=== PATIENT | male | born 1940 | race Caucasian/White ===

== ENCOUNTER 2016-07-14 21:08 | Inpatient (IN) | payer MEDICARE, BC ==
--- NOTE | 2016-07-14 21:14 | ER Document Report ---
ED Medical Screen (RME) - General Stated Complaint: FEVER Time seen by provider: 21:11 Mode of Arrival: Ambulatory Information source: Patient Notes: 76-year-old male presents to ED for cough and cold symptoms for the last week. States fever just before coming to the ER as 102. Temperature in RME is a 98.7. Patient has a history of elevated blood pressure and cholesterol. He states he has been taken cold medicine I have greeted and performed a rapid initial assessment of this patient. A comprehensive ED assessment and evaluation of the patient, analysis of test results and completion of medical decision making process will be conducted by an additional ED providers. TRAVEL OUTSIDE OF THE [place] 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 , Hx Hypercholesterolemia, Hx Hypertension - medicated CONTROLLED Denies: Hx Heart Attack Pulmonary Medical History: Denies: Hx Asthma, Hx Bronchitis, Hx COPD, Hx Pneumonia Neurological Medical History: Denies: Hx Cerebrovascular Accident, Hx Seizures Endocrine Medical History: Reports: Hx Diabetes Mellitus Type 2 GI Medical History: Denies: Hx Hepatitis, Hx Hiatal Hernia, Hx Ulcer Musculoskeltal Medical History: Reports Hx Arthritis - mainly shoulders Psychiatric Medical History: Reports: Hx Depression Infectious Medical History: Denies: Hx Hepatitis Past Surgical History: Reports: Hx Cholecystectomy. Denies: Hx Open Heart Surgery, Hx Pacemaker - Immunizations Hx Diphtheria, Pertussis, Tetanus Vaccination: No
[2016-07-14 21:48] LABS: HEMATOCRIT 38.1 % (37.9-51.0); HEMOGLOBIN 12.8 g/dL (13.5-17.0); HGB HCT DIFFERENCE 0.3; MEAN CORPUSCULAR HEMOGLOBIN 27.5 pg (27.0-33.4); MEAN CORPUSCULAR HGB CONC 33.5 g/dL (32.0-36.0); MEAN CORPUSCULAR VOLUME 82 fl (80-97); RED BLOOD COUNT 4.65 10^6/uL (4.35-5.55); RED CELL DISTRIBUTION WIDTH 15.3 % (11.5-14.0); WHITE BLOOD COUNT 13.2 10^3/uL (4.0-10.5)
[2016-07-14 21:53] LABS: ALANINE AMINOTRANSFERASE 32 U/L (21-72); ALBUMIN 3.8 g/dL (3.5-5.0); ALKALINE PHOSPHATASE 105 U/L (38-126); ANION GAP 14 (5-19); ASPARTATE AMINO TRANSFERASE 22 U/L (17-59); BILIRUBIN,TOTAL 1.7 mg/dL (0.2-1.3); BLOOD UREA NITROGEN 11 mg/dL (7-20); CARBON DIOXIDE 24 mmol/L (22-30); CHLORIDE 96 mmol/L (98-107); CREATININE RESULT 0.95 mg/dL (0.52-1.25); GLUCOSE 183 mg/dL (75-110); POTASSIUM 4.2 mmol/L (3.6-5.0); TOTAL PROTEIN 7.6 g/dL (6.3-8.2)
[2016-07-14 22:32] LABS: BAND NEUTROPHILS % (MANUAL) 3 % (3-5); BASOPHILS % (MANUAL) 0 % (0-2); EOSINOPHILS % (MANUAL) 1 % (0-6); LYMPHOCYTES % (MANUAL) 24 % (13-45); TOTAL CELLS COUNTED 100
[2016-07-14 22:38] LABS: ANISOCYTOSIS SLIGHT; PLATELET CLUMPS PRESENT; POLYCHROMASIA SLIGHT; TOXIC VACUOLATION PRESENT
[2016-07-15] MEDS ORDERED: CEFTRIAXONE 1 GM/D5W RTU 50 ML IV ONE (00:29)
[2016-07-15] MEDS ORDERED: LEVOFLOXACIN 750 MG/D5W RTU 150 ML IV ONE (00:30)
[2016-07-15] MEDS ORDERED: NORMAL SALINE 1000 ML 1,000 ML IV ONE (01:25)
--- NOTE | 2016-07-15 01:41 | ER Document Report ---
ED General - General Chief Complaint: Cold Symptoms Stated Complaint: FEVER Mode of Arrival: Ambulatory Notes: Patient is a 76-year-old male with past medical history of diabetes, hypertension, hyperlipidemia who presents with 1 week of progressively worsening cough and shortness of breath. States nothing improves or worsens the symptoms. He has not seen his primary care physician regarding today's concerns. States he's had similar symptoms in the past with upper respiratory infections as well as pneumonia. He has had a fever at home up to 102.5F. Denies any associated vomiting or diarrhea. No headache or ams. TRAVEL OUTSIDE OF THE [place] 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 , Hx Hypercholesterolemia, Hx Hypertension - medicated CONTROLLED Denies: Hx Heart Attack Pulmonary Medical History: Denies: Hx Asthma, Hx Bronchitis, Hx COPD, Hx Pneumonia Neurological Medical History: Denies: Hx Cerebrovascular Accident, Hx Seizures Endocrine Medical History: Reports: Hx Diabetes Mellitus Type 2 Renal/ Medical History: Denies: Hx Peritoneal Dialysis GI Medical History: Denies: Hx Hepatitis, Hx Hiatal Hernia, Hx Ulcer Musculoskeltal Medical History: Reports Hx Arthritis - mainly shoulders Psychiatric Medical History: Reports: Hx Depression Infectious Medical History: Denies: Hx Hepatitis Past Surgical History: Reports: Hx Cholecystectomy. Denies: Hx Open Heart Surgery, Hx Pacemaker - Immunizations Hx Diphtheria, Pertussis, Tetanus Vaccination: No Review of Systems - Review of Systems Notes: Constitutional: Positive for fever. HENT: Negative for sore throat. Eyes: Negative for visual changes. Cardiovascular: Negative for chest pain. Respiratory: Positive for cough Gastrointestinal: Negative for abdominal pain, vomiting or diarrhea. Genitourinary: Negative for dysuria. Musculoskeletal: Negative for back pain. Skin: Negative for rash. Neurological: Negative for headaches, weakness or numbness. 10 point ROS negative except as marked above and in HPI. Physical Exam - Vital signs Vitals: Temp Pulse Resp BP Pulse Ox 97.9 F 95 20 141/79 H 100 07/14/16 21:11 07/14/16 21:11 07/14/16 21:11 07/14/16 21:11 07/14/16 21:11 Interpretation: Hypertensive Notes: PHYSICAL EXAMINATION: GENERAL: Well-appearing, well-nourished and in no acute distress. HEAD: Atraumatic, normocephalic. EYES: Pupils equal round and reactive to light, extraocular movements intact, sclera anicteric, conjunctiva are normal. ENT: nares patent, oropharynx clear without exudates. Moist mucous membranes. NECK: Normal range of motion, supple without lymphadenopathy LUNGS: Breath sounds clear to auscultation except diminished at the left base. No wheezes rales or rhonchi. HEART: Regular rate and rhythm without murmurs ABDOMEN: Soft, nontender, normoactive bowel sounds. No guarding, no rebound. No masses appreciated. EXTREMITIES: Normal range of motion, no pitting or edema. No cyanosis. NEUROLOGICAL: No focal neurological deficits. Moves all extremities spontaneously and on command. PSYCH: Normal mood, normal affect. SKIN: Warm, Dry, normal turgor, no rashes or lesions noted. Course - Re-evaluation Re-evalutation: 07/15/16 01:39 Presentation of an overall well-appearing 76-year-old gentleman in no acute distress. Laboratory to show mild leukocytosis. He is in no significant respiratory distress. No tachypnea or hypoxemia. Chest x-ray does demonstrate a left lower lobe pneumonia. I started patient on IV antibiotics. He will has been admitted to the hospitalist service given his age, history of diabetes, and his current independent residence where he does live alone without any assistance. - Vital Signs Vital signs: Temp Pulse Resp BP Pulse Ox 98.8 F 95 18 141/79 H 95 07/15/16 02:34 07/15/16 01:05 07/15/16 02:34 07/14/16 21:11 07/15/16 02:34 - Laboratory Result Diagrams: 07/14/16 21:31 07/14/16 21:31 Laboratory results interpreted by me: 07/14/16 07/14/16 21:31 21:31 WBC 13.2 H Hgb 12.8 L RDW 15.3 H Metamyelocytes % 1 H Sodium 134.0 L Chloride 96 L Glucose 183 H Total Bilirubin 1.7 H - Diagnostic Test Radiology reviewed: Image reviewed, Reports reviewed Radiology results interpreted by me: 07/15/16 03:25 CXR: Left lower lobe pneumonia Discharge - Discharge Clinical Impression: Left lower lobe pneumonia Qualifiers: Pneumonia type: due to unspecified organism Qualified Code(s): J18.1 - Lobar pneumonia, unspecified organism Condition: Fair Disposition: ADMITTED INPATIENT Admitting Provider: [facility] Admitted: Telemetry
[2016-07-15] MEDS ORDERED: IPRATROPIUM/ALBUTEROL 0.5-2.5 MG/3 ML AMPUL NEB PRN (02:46)
[2016-07-15] MEDS ORDERED: GUAIFENESIN SYRP 200 MG/10 ML UDC PO PRN (02:46)
[2016-07-15] MEDS ORDERED: ACETAMINOPHEN 325 MG TABLET PO PRN (02:46)
[2016-07-15] MEDS ORDERED: DEXTROSE 50%-WATER 25 GM/50 ML DISP.SYRIN IV PRN ×2 (02:48)
[2016-07-15] MEDS ORDERED: DEXTROSE 40% GEL 15 GM TUBE PO PRN ×2 (02:48)
[2016-07-15] MEDS ORDERED: GLUCAGON,HUMAN RECOMB 1 MG INJ IM PRN (02:48)
--- NOTE | 2016-07-15 03:19 | PDOC H&P ---
History of Present Illness Admission Date/PCP: 07/15/16 02:35 LUIZA PAULA, Patient complains of: Fever and cough History of Present Illness: MARIELLA PARNELL is a 76 year old male, without known underlying chronic lung pathology, who presents to the emergency room for evaluation of above complaints. Patient has been discussed with emergency room physician who evaluated the patient. Describes a 2 day history of fever to 102 with shaking chills and productive cough. No diarrhea or dysuria, nausea vomiting. Positive sick contacts in the person of his girlfriend. Has not been on antibiotics. Has had flu vaccination but not pneumonia vaccination. Laboratory results are listed in [facility] and are reviewed. X-ray summary results are listed below, with full report(s) reviewed. . Social history/personal habits: . 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 One son. Lives alone. Has girlfriend. No use of alcohol tobacco or illicit drugs. Allergies/adverse reactions NKDA. Home medications are reviewed by discussion with patient and are to be reconciled by nursing staff in [facility]. Home medications initially autopopulated into [employer] (formerly [employer]) may not accurately reflect patient's true medications, dosages, and/or frequencies. Unfortunately, patient recently started a second medication for his prostatic hypertrophy and is uncertain of specific medication. Order has been entered for staff to contact family, outpatient physician, and/or pharmacy to more accurately determine the specific medication. REVIEW OF SYSTEMS: Constitutional: See history and present illness. Eyes: Wears glasses. ENT: No swallowing problems or complaints. Partial hearing loss. Pulmonary: See history and present illness. Cardiovascular: No current complaints, including chest pain. Gastrointestinal: No current complaints, including nausea or vomiting. Skin: No current complaints, including rashes. Hematologic: Easy bruising. Neurologic: No current complaints, including numbness or tingling. Musculoskeletal: Joint pain from arthritis. Psychiatric: depression; denies suicidal or homicidal ideation. Endocrine: No current complaints, including polyuria. Genitourinary: No current complaints, including dysuria. PHYSICAL EXAMINATION: 74.9 kg. Height is not recorded on the chart. Temperature 98.8. Blood pressure 146/72. Respirations are 15 and unlabored. Pulse 78 and regular. 95 % saturation on room air. Well-nourished well-developed male appearing in number of years younger than his stated age. Awake alert pleasant and cooperative. No obvious distress other than perhaps mildly anxious. Skin is warm and dry. No grossly obvious evidence of rash in areas of skin examined. No subcutaneous nodules palpated. ENT: Hearing grossly normal to normal conversation. Tongue midline on protrusion pink and slightly tacky. Eyes: No scleral icterus. Pupils equal and reactive to light at 4 mm. [place] conjunctivae. Neck is supple and nontender to gentle active range of motion and palpation. Midline trachea. No palpable thyroid nodule mass enlargement or tenderness. Lymphatic: No palpable cervical or clavicular nodes. Neck and lymphatic exams limited by patient body habitus. Psychiatric: Reasonable insight into acute and chronic medical issues. Oriented to time location and why here. Lungs: Auscultation reveals equal breath sounds bilaterally. No use of accessory respiratory muscles. Mildly coarse breath sounds in left base. Cardiovascular: Heart regular rate and rhythm, without gallop murmur or rub. No carotid or abdominal aortic bruits. No ankle or pedal edema. Faintly palpable dorsalis pedis pulses. Abdomen: soft, , slightly distended nontender with positive bowel sounds. Unable to adequately evaluate abdomen for masses or organomegaly due to distention. Extremities: Feet are warm and dry. No calf tenderness to compression. No grossly obvious visual evidence of calf swelling. Gentle manipulation of lower extremities fails to reveal any obvious evidence of injury or instability to knees hips or ankles. Neurologic: Moves upper extremities grossly normally. Patellar reflexes absent. Absent Babinski. Light touch is intact at feet. Dorsiflexion and plantarflexion of feet 5 / 5 and symmetric. Past Medical History Cardiac Medical History: Reports: Hyperlipidema, Hypertension - medicated CONTROLLED, Other - Right carotid artery disease, followed by Dr. Nance in [place]. Denies: Congestive Heart Failure, Coronary Artery Disease, DVT, Myocardial Infarction, Pulmonary Embolism Pulmonary Medical History: Denies: Asthma, Bronchitis, Chronic Obstructive Pulmonary Disease (COPD), Pneumonia EENT Medical History: Reports: Eyes - Glasses, Ears - Partial hearing loss Denies: Throat Neurological Medical History: Denies: Hemorrhagic CVA, Ischemic CVA, Seizures Endocrine Medical History: Reports: Diabetes Mellitus Type 1 Denies: Hyperthyroidism, Hypothyroidism Renal/ Medical History: Reports: Other - Prostatic hypertrophy GI Medical History: Denies: Cirrhosis, Hepatitis, Hiatal Hernia, Peptic Ulcer Disease Musculoskeltal Medical History: Reports: Arthritis - mainly shoulders Skin Medical History: Reports: None Denies: Eczema, Psoriasis Psychiatric Medical History: Reports: Depression Hematology: Reports: Other - Easy bruising Denies: Anemia Infectious Medical History: Denies: Hepatitis B, Hepatitis C Past Surgical History Past Surgical History: Reports: Cholecystectomy Social History Information Source: Patient, Emergency Med Personnel, [facility] Records Lives with: Alone Smoking Status: Never Smoker Frequency of Alcohol Use: None Drugs: None - Advance Directive Resuscitation Status: Full Code Surrogate healthcare decision maker:: His son Family History Family History: None Parental Family History Reviewed: Yes Children Family History Reviewed: Yes Sibling(s) Family History Reviewed.: Yes Medication/Allergy Home Medications: Amlodipine Besylate [Norvasc 5 mg Tablet] 5 mg PO DAILY 07/19/13 Insulin Glargine,Hum.rec.anlog [Lantus] 45 unit SQ QHS 07/19/13 Paroxetine HCl [Paxil 20 mg Tablet] 20 mg PO DAILY 07/19/13 Tamsulosin HCl 0.4 mg PO QHS 07/19/13 Atorvastatin Calcium [Lipitor] 40 mg PO DAILY 09/04/14 Aspirin [Aspirin 81 mg Chewable Tablet] 1 tab PO DAILY 03/03/16 Insulin Lispro [Humalog Insulin (Lispro) 100 unit/mL] 5 units SQ TID PRN Metformin HCl [Glumetza ER 500 mg Tablet] 1 tab PO QHS 03/03/16 Ciprofloxacin HCl [Cipro 500 mg Tablet] 500 mg PO BID #20 tablet 03/16/16 Allergies/Adverse Reactions: No Known Allergies Allergy (Verified 03/03/16 09:33) Physical Exam Vital Signs: Temp Pulse Resp BP Pulse Ox 97.9 F 95 18 141/79 H 100 07/14/16 21:11 07/15/16 01:05 07/15/16 01:05 07/14/16 21:11 07/14/16 21:11 Results Impressions: Chest X-Ray 07/14/16 21:14 IMPRESSION: NEW LEFT LOWER LOBE AIRSPACE DISEASE COMPATIBLE WITH PNEUMONIA. RECOMMEND FOLLOWUP RADIOGRAPHS 4 TO 6 WEEKS TO ENSURE RESOLUTION. Assessment & Plan - Diagnosis (1) Left lower lobe pneumonia Qualifiers: Pneumonia type: due to unspecified organism Qualified Code(s): J18.1 - Lobar pneumonia, unspecified organism Is this a current diagnosis for this admission?: YesPlan: Patient will be admitted under pneumonia protocol. Incentive spirometry twice a day. PRN DuoNeb's. Antibiotics will consist of Rocephin and intravenous Zithromax.. I strongly encouraged patient to notify staff should patient feel that respiratory status is worsening. Patient is a full code. I have strongly urged patient to be careful getting out of bed, to avoid a fall with injury. Knee high SCDs for DVT prophylaxis, along with subcutaneous Lovenox Impression and plans were discussed with patient, who concurs. Time spent in evaluation and management of patient: 64 minutes. (2) BPH (benign prostatic hyperplasia) Qualifiers: Prostatic enlargement morphology: unspecified morphology Lower urinary tract symptom presence: presence of symptoms unspecified Qualified Code(s ): N40.0 - Benign prostatic hyperplasia without lower urinary tract symptoms Is this a current diagnosis for this admission?: YesPlan: Resume home medications as appropriate once these have been determined and reviewed. (3) Depression Qualifiers: Depression Type: unspecified Qualified Code(s): F32.9 - Major depressive disorder, single episode, unspecified Is this a current diagnosis for this admission?: YesPlan: Clinically appears to be doing nicely at the present time. No outward evidence of depression.Resume home medications as appropriate once these have been reviewed. (4) Diabetes mellitus type 1 Qualifiers: Diabetes mellitus complication status: without complication Qualified Code(s): E10.9 - Type 1 diabetes mellitus without complications Is this a current diagnosis for this admission?: YesPlan: Diabetic cardiac diet. Accu-Cheks with appropriate sliding scale coverage. Resume home medications as appropriate once these have been reviewed. (5) HTN (hypertension) Qualifiers: Hypertension type: essential hypertension Qualified Code(s): I10 - Essential (primary) hypertension Is this a current diagnosis for this admission?: YesPlan: Resume home medications as appropriate once these have been reviewed. (6) Hyperlipidemia Qualifiers: Hyperlipidemia type: unspecified Qualified Code(s): E78.5 - Hyperlipidemia, unspecified Is this a current diagnosis for this admission?: YesPlan: Resume home medications as appropriate once these have been reviewed. - Inpatient Certification Based on my medical assessment, after consideration of the patient's comorbidities, presenting symptoms, or acuity I expect that the services needed warrant INPATIENT care.: Yes I certify that my determination is in accordance with my understanding of Medicare's requirements for reasonable and necessary INPATIENT services [42 CFR 412.3e].: Yes Medical Necessity: Need Close Monitoring Due to Risk of Patient Decompensation, Need for Nebulizer Therapy and Monitoring of Response, Need for IV Antibiotics, Risk of Complication if Not Cared For in Hospital Post Hospital Care: D/C or Transfer Summary
[2016-07-15 06:38] LABS: ABSOLUTE EOSINOPHILS # (AUTO) 0.2 10^3/uL (0.0-0.6); ABSOLUTE LYMPHOCYTES (AUTO) 2.9 10^3/uL (0.5-4.7); ABSOLUTE MONOCYTES (AUTO) 1.7 10^3/uL (0.1-1.4); ABSOLUTE NEUT (AUTO) 6.5 10^3/uL (1.7-8.2); BASOPHILS % (AUTO) 0.4 % (0-2); EOSINOPHILS % (AUTO) 1.8 % (0-6); HEMATOCRIT 35.5 % (37.9-51.0); HEMOGLOBIN 11.8 g/dL (13.5-17.0); HGB HCT DIFFERENCE -0.1; LYMPHOCYTES % (AUTO) 25.6 % (13-45); MEAN CORPUSCULAR HEMOGLOBIN 27.3 pg (27.0-33.4); MEAN CORPUSCULAR HGB CONC 33.3 g/dL (32.0-36.0); MEAN CORPUSCULAR VOLUME 82 fl (80-97); RED BLOOD COUNT 4.33 10^6/uL (4.35-5.55); RED CELL DISTRIBUTION WIDTH 15.2 % (11.5-14.0); SEGMENTED NEUTROPHILS % (AUTO) 57.2 % (42-78); WHITE BLOOD COUNT 11.3 10^3/uL (4.0-10.5)
[2016-07-15] MEDS: AMLODIPINE BESYLATE 5 MG TABLET PO SCH (10:00)
[2016-07-15] MEDS: CEFTRIAXONE 1 GM/D5W RTU 1 GM/50 ML RTUPB IV SCH (10:00)
[2016-07-15] MEDS: ASPIRIN 81 MG TABLET, CHEWABLE PO SCH (10:00)
[2016-07-15] MEDS: ATORVASTATIN CALCIUM 20 MG TABLET PO SCH (10:00)
[2016-07-15] MEDS: PAROXETINE HCL 20 MG TABLET PO SCH (10:00)
[2016-07-15] MEDS: ENOXAPARIN SODIUM INJ 40 MG/0.4 ML DISP.SYRIN SUBCUT SCH (10:10)
[2016-07-15] MEDS: INSULIN LISPRO 100 UNIT/ML 3 ML VIAL SUBCUT PRN ×3 (12:10→16:40)
[2016-07-15] MEDS: AZITHROMYCIN 500 MG in DEXTROSE 5%-WATER 250 ML IV SCH (13:41)
--- NOTE | 2016-07-15 17:57 | PDOC PROGRESS REPORT ---
Subjective Progress Note for:: 07/15/16 Subjective:: The patient was seen earlier today on rounds. Patient states overall symptoms are much improved. The patient denies any nausea, vomiting, diarrhea, shortness of breath, dizziness, chest pain, heart palpitations, fevers, or chills. The patient has remained afebrile. Blood pressures have been in a good range. When prompted the patient voices no other concerns at this time. Review of systems: The rest of the review of systems is negative. Physical Exam Vital Signs: Temp Pulse Resp BP Pulse Ox 100.8 F H 87 20 155/67 H 97 07/15/16 15:38 07/15/16 15:38 07/15/16 15:38 07/15/16 15:38 07/15/16 15:38 Intake & Output 07/13/16 07/14/16 07/15/16 23:59 23:59 23:59 Intake Total 740 Balance 740 Weight 73.6 kg General appearance: PRESENT: no acute distress, cooperative, well-developed, well-nourished Head exam: PRESENT: atraumatic, normocephalic Eye exam: PRESENT: conjunctiva pink, EOMI, PERRLA. ABSENT: scleral icterus Ear exam: PRESENT: normal external ear exam Mouth exam: PRESENT: moist, tongue midline Neck exam: ABSENT: carotid bruit, JVD, lymphadenopathy, thyromegaly Respiratory exam: PRESENT: symmetrical, unlabored, wheezes. ABSENT: rales, rhonchi, tachypnea Cardiovascular exam: PRESENT: RRR. ABSENT: diastolic murmur, rubs Pulses: PRESENT: normal dorsalis pedis pul Vascular exam: PRESENT: normal capillary refill GI/Abdominal exam: PRESENT: normal bowel sounds, soft. ABSENT: distended, guarding, mass, organolmegaly, rebound, tenderness Rectal exam: PRESENT: deferred Extremities exam: PRESENT: full ROM. ABSENT: calf tenderness, clubbing, pedal edema Neurological exam: PRESENT: alert, awake, oriented to person, oriented to place , oriented to time, oriented to situation, CN II-XII grossly intact. ABSENT: motor sensory deficit Psychiatric exam: PRESENT: appropriate affect, normal mood. ABSENT: homicidal ideation, suicidal ideation Skin exam: PRESENT: dry, intact, warm. ABSENT: cyanosis, rash Results Laboratory Results: 07/15/16 06:29 01/28/17 06:29 WBC 11.3 H RBC 4.33 L Hgb 11.8 L Hct 35.5 L MCV 82 MCH 27.3 MCHC 33.3 RDW 15.2 H Plt Count 225 Seg Neutrophils % 57.2 Lymphocytes % 25.6 Monocytes % 15.0 H Eosinophils % 1.8 Basophils % 0.4 Absolute Neutrophils 6.5 Absolute Lymphocytes 2.9 Absolute Monocytes 1.7 H Absolute Eosinophils 0.2 Absolute Basophils 0.0 Impressions: Chest X-Ray 07/14/16 21:14 IMPRESSION: NEW LEFT LOWER LOBE AIRSPACE DISEASE COMPATIBLE WITH PNEUMONIA. RECOMMEND FOLLOWUP RADIOGRAPHS 4 TO 6 WEEKS TO ENSURE RESOLUTION. Assessment & Plan - Diagnosis (1) Left lower lobe pneumonia Qualifiers: Pneumonia type: due to unspecified organism Qualified Code(s): J18.1 - Lobar pneumonia, unspecified organism Is this a current diagnosis for this admission?: YesPlan: Will continue IV antibiotics nebs reevaluate in the a.m. Overall clinically much improved. (2) BPH (benign prostatic hyperplasia) Qualifiers: Prostatic enlargement morphology: unspecified morphology Lower urinary tract symptom presence: presence of symptoms unspecified Qualified Code(s ): N40.0 - Benign prostatic hyperplasia without lower urinary tract symptoms Is this a current diagnosis for this admission?: Yes (3) Depression Qualifiers: Depression Type: unspecified Qualified Code(s): F32.9 - Major depressive disorder, single episode, unspecified Is this a current diagnosis for this admission?: Yes (4) Elevated LFTs Is this a current diagnosis for this admission?: YesPlan: Repeat in the a.m. (5) HTN (hypertension) Qualifiers: Hypertension type: essential hypertension Qualified Code(s): I10 - Essential (primary) hypertension Is this a current diagnosis for this admission?: Yes (6) Hyperlipidemia Qualifiers: Hyperlipidemia type: unspecified Qualified Code(s): E78.5 - Hyperlipidemia, unspecified Is this a current diagnosis for this admission?: Yes (7) Diabetes mellitus type 2 in nonobese Is this a current diagnosis for this admission?: YesPlan: Will resume home meds - Time Time Spent with patient: 35 or more minutes Medications reviewed and adjusted accordingly: Yes Anticipated discharge: Home Within: within 24 hours, within 48 hours
[2016-07-15] MEDS: INSULIN LISPRO 100 UNIT/ML 3 ML VIAL SUBCUT SCH (17:59)
[2016-07-15] MEDS: METFORMIN HCL 500 MG TABLET PO SCH (18:00)
[2016-07-15] MEDS ORDERED: INSULIN GLARGINE,HUM.REC.ANLOG 1,000 UNIT/10 ML UNIT SUBCUT SCH ×2 (22:00)
[2016-07-15] MEDS ORDERED: TAMSULOSIN HCL 0.4 MG CAP.SR.24H PO SCH (22:00)
[2016-07-15] MEDS ORDERED: METFORMIN HCL PO SCH (22:00)
[2016-07-16 07:12] LABS: HEMATOCRIT 36.5 % (37.9-51.0); HEMOGLOBIN 12.1 g/dL (13.5-17.0); HGB HCT DIFFERENCE -0.2; MEAN CORPUSCULAR VOLUME 82 fl (80-97); RED BLOOD COUNT 4.46 10^6/uL (4.35-5.55); RED CELL DISTRIBUTION WIDTH 15.5 % (11.5-14.0); WHITE BLOOD COUNT 10.3 10^3/uL (4.0-10.5)
[2016-07-16 07:32] LABS: ALANINE AMINOTRANSFERASE 32 U/L (21-72); ALBUMIN 3.6 g/dL (3.5-5.0); ALKALINE PHOSPHATASE 111 U/L (38-126); ANION GAP 13 (5-19); ASPARTATE AMINO TRANSFERASE 17 U/L (17-59); BILIRUBIN,TOTAL 1.2 mg/dL (0.2-1.3); BLOOD UREA NITROGEN 13 mg/dL (7-20); CALCIUM 9.1 mg/dL (8.4-10.2); CARBON DIOXIDE 26 mmol/L (22-30); CHLORIDE 99 mmol/L (98-107); CREATININE RESULT 0.93 mg/dL (0.52-1.25); GLUCOSE 228 mg/dL (75-110); MAGNESIUM 1.8 mg/dL (1.6-2.3); POTASSIUM 4.2 mmol/L (3.6-5.0); SODIUM 138.3 mmol/L (137-145); TOTAL PROTEIN 7.3 g/dL (6.3-8.2)
[2016-07-16] MEDS: ENOXAPARIN SODIUM INJ 40 MG/0.4 ML DISP.SYRIN SUBCUT SCH (08:26)
[2016-07-16] MEDS: INSULIN LISPRO 100 UNIT/ML 3 ML VIAL SUBCUT SCH ×2 (08:27→12:44)
[2016-07-16] MEDS: METFORMIN HCL 500 MG TABLET PO SCH (08:29)
[2016-07-16] MEDS: INSULIN LISPRO 100 UNIT/ML 3 ML VIAL SUBCUT PRN ×2 (08:29→12:45)
[2016-07-16] MEDS: AMLODIPINE BESYLATE 5 MG TABLET PO SCH (09:49)
[2016-07-16] MEDS: ATORVASTATIN CALCIUM 20 MG TABLET PO SCH (09:50)
[2016-07-16] MEDS: CEFTRIAXONE 1 GM/D5W RTU 1 GM/50 ML RTUPB IV SCH (09:51)
[2016-07-16] MEDS: ASPIRIN 81 MG TABLET, CHEWABLE PO SCH (09:51)
[2016-07-16] MEDS: PAROXETINE HCL 20 MG TABLET PO SCH (09:51)
[2016-07-16] MEDS: AZITHROMYCIN 500 MG in DEXTROSE 5%-WATER 250 ML IV SCH (09:52)
[2016-07-16 13:06] VITALS: BP 151/64
--- NOTE | 2016-07-16 17:11 | PDOC DISCHARGE SUMMARY ---
General - Admit/Disc Date/PCP Admission Date/Primary Care Provider: 07/15/16 02:46 LUIZA PAULA, Discharge Date: 07/16/16 - Discharge Diagnosis (1) Left lower lobe pneumonia Is this a current diagnosis for this admission?: Yes (2) BPH (benign prostatic hyperplasia) Is this a current diagnosis for this admission?: Yes (3) Depression Is this a current diagnosis for this admission?: Yes (4) Elevated LFTs Is this a current diagnosis for this admission?: YesSummary: Resolved (5) HTN (hypertension) Is this a current diagnosis for this admission?: Yes (6) Hyperlipidemia Is this a current diagnosis for this admission?: Yes (7) Diabetes mellitus type 2 in nonobese Is this a current diagnosis for this admission?: Yes - Additional Information Resuscitation Status: Full Code Discharge Diet: As Tolerated, Cardiac Discharge Activity: Activity As Tolerated Home Medications: Amlodipine Besylate [Norvasc 5 mg Tablet] 5 mg PO DAILY 07/19/13 Insulin Glargine,Hum.rec.anlog [Lantus] 45 unit SQ QHS 07/19/13 Paroxetine HCl [Paxil 20 mg Tablet] 20 mg PO DAILY 07/19/13 Tamsulosin HCl 0.4 mg PO QHS 07/19/13 Atorvastatin Calcium [Lipitor] 40 mg PO DAILY 09/04/14 Aspirin [Aspirin 81 mg Chewable Tablet] 1 tab PO DAILY 03/03/16 Insulin Lispro [Humalog Insulin (Lispro) 100 unit/mL] 5 units SQ TID 03/03/16 Metformin HCl [Glumetza ER 500 mg Tablet] 1 tab PO QHS 03/03/16 Azithromycin [Zithromax Tri-Vincent] 500 mg PO DAILY #1 pkg 07/16/16 Cefuroxime Axetil [Ceftin 500 mg Tablet] 1 tab PO BID #14 tablet 07/16/16 Guaifenesin [Mucinex] 600 mg PO Q12 #6 tablet.sa 07/16/16 History of Present Illness Patient complains of: Fever and cough History of Present Illness: MARIELLA PARNELL is a 76 year old male, without known underlying chronic lung pathology, who presents to the emergency room for evaluation of above complaints. Describes a 2 day history of fever to 102 with shaking chills and productive cough. No diarrhea or dysuria, nausea vomiting. Positive sick contacts in the person of his girlfriend. Has not been on antibiotics. Has had flu vaccination but not pneumonia vaccination. Hospital Course Hospital Course: The patient was placed on antibiotic(s), nebulizers, expectorants, supplemental O2, incentive spirometry and flutter valve. Sputum culture was unable obtained. The patient was weaned from O2 and symptoms overall improved. Patient was able to pull 2500 on insulin spirometer and sputum was produced with flutter valve. The patient remained afebrile his blood pressures been in a good range blood cultures were unremarkable and the patient is ready for discharge. Physical Exam Vital Signs: Temp Pulse Resp BP Pulse Ox 97.8 F 83 16 151/64 H 97 07/16/16 13:04 07/16/16 13:04 07/16/16 13:04 07/16/16 13:04 07/16/16 13:04 Intake & Output 07/14/16 07/15/16 07/16/16 23:59 23:59 23:59 Intake Total 1330 720 Balance 1330 720 Weight 73.6 kg 73.6 kg General appearance: PRESENT: no acute distress, cooperative, well-developed, well-nourished Head exam: PRESENT: atraumatic, normocephalic Eye exam: PRESENT: conjunctiva pink, EOMI, PERRLA. ABSENT: scleral icterus Ear exam: PRESENT: normal external ear exam Mouth exam: PRESENT: moist, tongue midline Neck exam: ABSENT: carotid bruit, JVD, lymphadenopathy, thyromegaly Respiratory exam: PRESENT: symmetrical, unlabored, . ABSENT: rales, rhonchi, tachypneawheezes Cardiovascular exam: PRESENT: RRR. ABSENT: diastolic murmur, rubs Pulses: PRESENT: normal dorsalis pedis pul Vascular exam: PRESENT: normal capillary refill GI/Abdominal exam: PRESENT: normal bowel sounds, soft. ABSENT: distended, guarding, mass, organolmegaly, rebound, tenderness Rectal exam: PRESENT: deferred Extremities exam: PRESENT: full ROM. ABSENT: calf tenderness, clubbing, pedal edema Neurological exam: PRESENT: alert, awake, oriented to person, oriented to place , oriented to time, oriented to situation, CN II-XII grossly intact. ABSENT: motor sensory deficit Psychiatric exam: PRESENT: appropriate affect, normal mood. ABSENT: homicidal ideation, suicidal ideation Skin exam: PRESENT: dry, intact, warm. ABSENT: cyanosis, rash Results Laboratory Results: Labs- Last Values WBC 10.3 10^3/uL (4.0-10.5) 07/16/16 06:24 RBC 4.46 10^6/uL (4.35-5.55) 07/16/16 06:24 Hgb 12.1 g/dL (13.5-17.0) L 07/16/16 06:24 Hct 36.5 % (37.9-51.0) L 07/16/16 06:24 MCV 82 fl (80-97) 07/16/16 06:24 MCH 27.0 pg (27.0-33.4) 07/16/16 06:24 MCHC 33.0 g/dL (32.0-36.0) 07/16/16 06:24 RDW 15.5 % (11.5-14.0) H 07/16/16 06:24 Plt Count 229 10^3/uL (150-450) 07/16/16 06:24 Total Counted 100 07/14/16 21:31 Seg Neutrophils % 57.2 % (42-78) 07/15/16 06:29 Seg Neuts % (Manual) 58 % (42-78) 07/14/16 21:31 Band Neutrophils % 3 % (3-5) 07/14/16 21:31 Lymphocytes % 25.6 % (13-45) 07/15/16 06:29 Lymphocytes % (Manual) 24 % (13-45) 07/14/16 21:31 Atypical Lymphs % 7 % (0) 07/14/16 21:31 Monocytes % 15.0 % (3-13) H 07/15/16 06:29 Monocytes % (Manual) 6 % (3-13) 07/14/16 21:31 Eosinophils % 1.8 % (0-6) 07/15/16 06:29 Eosinophils % (Manual) 1 % (0-6) 07/14/16 21:31 Basophils % 0.4 % (0-2) 07/15/16 06:29 Basophils % (Manual) 0 % (0-2) 07/14/16 21:31 Metamyelocytes % 1 % (0) H 07/14/16 21:31 Absolute Neutrophils 6.5 10^3/uL (1.7-8.2) 07/15/16 06:29 Abs Neuts (Manual) 8.2 10^3/uL (1.7-8.2) 07/14/16 21:31 Absolute Lymphocytes 2.9 10^3/uL (0.5-4.7) 07/15/16 06:29 Abs Lymphs (Manual) 4.1 10^3/uL (0.5-4.7) 07/14/16 21:31 Absolute Monocytes 1.7 10^3/uL (0.1-1.4) H 07/15/16 06:29 Abs Monocytes (Manual) 0.8 10^3/uL (0.1-1.4) 07/14/16 21:31 Absolute Eosinophils 0.2 10^3/uL (0.0-0.6) 07/15/16 06:29 Absolute Eos (Manual) 0.1 10^3/uL (0.0-0.6) 07/14/16 21:31 Absolute Basophils 0.0 10^3/uL (0.0-0.2) 07/15/16 06:29 Abs Basophils (Manual) 0.0 10^3/uL (0.0-0.2) 07/14/16 21:31 Toxic Vacuolation PRESENT 07/14/16 21:31 Clumped Platelets PRESENT 07/14/16 21:31 Platelet Comment ADEQUATE 07/14/16 21:31 Polychromasia SLIGHT 07/14/16 21:31 Anisocytosis SLIGHT 07/14/16 21:31 Sodium 138.3 mmol/L (137-145) 07/16/16 06:24 Potassium 4.2 mmol/L (3.6-5.0) 07/16/16 06:24 Chloride 99 mmol/L (98-107) 07/16/16 06:24 Carbon Dioxide 26 mmol/L (22-30) 07/16/16 06:24 Anion Gap 13 (5-19) 07/16/16 06:24 BUN 13 mg/dL (7-20) 07/16/16 06:24 Creatinine 0.93 mg/dL (0.52-1.25) 07/16/16 06:24 Est GFR ( Amer) > 60 (>60) 07/16/16 06:24 Est GFR (Non-Af Amer) > 60 (>60) 07/16/16 06:24 Glucose 228 mg/dL (75-110) H 07/16/16 06:24 POC Glucose 289 mg/dL (70-110) H 07/16/16 12:40 Calcium 9.1 mg/dL (8.4-10.2) 07/16/16 06:24 Magnesium 1.8 mg/dL (1.6-2.3) 07/16/16 06:24 Total Bilirubin 1.2 mg/dL (0.2-1.3) 07/16/16 06:24 Direct Bilirubin 0.0 mg/dL (0.0-0.3) 07/16/16 06:24 AST 17 U/L (17-59) 07/16/16 06:24 ALT 32 U/L (21-72) 07/16/16 06:24 Alkaline Phosphatase 111 U/L (38-126) 07/16/16 06:24 Total Protein 7.3 g/dL (6.3-8.2) 07/16/16 06:24 Albumin 3.6 g/dL (3.5-5.0) 07/16/16 06:24 Impressions: Chest X-Ray 07/14/16 21:14 IMPRESSION: NEW LEFT LOWER LOBE AIRSPACE DISEASE COMPATIBLE WITH PNEUMONIA. RECOMMEND FOLLOWUP RADIOGRAPHS 4 TO 6 WEEKS TO ENSURE RESOLUTION. Qualifiers PATEINT BEING DISCHARGED WITH ANY OF THE FOLLOWING DIAGNOSIS?: No Plan Discharge Plan: The patient is a follow with primary care provider within one week for hospital follow-up. Patient may return to work was cleared with primary care provider. Time Spent: Less than 30 Minutes
--- NOTE | 2016-07-22 15:39 | Physician Advisory Note ---
Physician Advisor ProgressNote .: Pursuant to the plan for [facility], I have reviewed the medical record for this patient. Physician Advisor Statement: Asked to do post-discharge review r.e. status. 76yo with underlying DM, HTN, CAD, carotid dz, BPH, OA presented with progressively worsening cough & SOB, fever to 102.5. He told triage nurse he didn't feel comfortable going back home alone feeling as poorly as he did. Initial VS T 97.9, HR 95, R 20, BP 141/79, sat 100%, with WBC 13.2, CXR showed LLL PNA. Hgb 12.8, Na 134, Cl 96, glc 183, TBili 1.7. ED reported NAD, overall well-appearing, no significant respiratory distress, dx 'd pneumonia. ED gave 1L bolus NS wide open, IV Levaquin, IV Rocephin. Admitting attending documented pt had been having shaking chills and productive cough, had mildly coarse breath sounds at Lt base, but no accessory muscle use, no hypoxemia, no distress. He ordered IV abx and prn duonebs, incentive spirometry. This patient was an elderly male with DM & CAD, so could have chance of severe illness developing in setting of acute pneumonia. In fact, he already had tachycardia & leukocytosis, which could be concerning for potential early sepsis. Determination: This is not the easiest case for determining status. Certainly, it was reasonable to bring this patient in for close observation while initiating treatment, to be certain he did not have further worsening before he responded. At the time of status decision, the patient had already been in hospital care for 1 midnight and the admitting attending could suspect a possibility of patient needing a 2nd MN. (Not definitely, though.) Later that day when re-evaluated by on-coming attending, patient's temp was worsening again to 100.8 & the attending would not know at that point whether it was about to go much higher again or not, but that was not commented on in the note. The severity of illness, even on presentation, was indicated to be rather low, and intensity of service after ED stay was also relatively low. Neither ED dr nor admitting attending mentioned possible sepsis as being a concern to them. Neither mentioned the hyponatremia, either, for that matter. They both rather emphasized how well-appearing the patient was, with no respiratory distress, no accessory muscle use, no hypoxemia. There is no documentation of reasons this patient could not be managed as an outpatient from the clinical standpoint, as many pneumonias are. There is no mention in 07/15 progress note later that day of why patient still needed a 2nd MN in the hospital, while there was documentation that symptoms were much improved (and WBC was better, too). Nursing notes while patient was on the floor all state he was calm, with non- labored, normal breathing and clear lung sounds. It appears most appropriate, based on current documentation, for this patient to have been brought in as Outpt Observation, and there is no clear documentation as to why he should have been made Inpatient either initially or later that day.
== END 2016-07-16 14:05 | disposition home or self-care (01) | DRG 195 ==
LOC: ER 21:08 → EH 07-15 02:35 → UNDOADMIN 07-15 02:35 → EH 07-15 02:46 → 4N 07-15 04:27
PROVIDERS: ADMIT Family Medicine; ATTEND Family Medicine
PROC: 3E0F73Z Introduction of Anti-inflammatory into Respiratory Tract, Via Natural or Artificial Opening (ICD-10-PCS; principal; 2016-07-15)
DX: J18.1 Lobar pneumonia, unspecified organism (principal); N40.0 Benign prostatic hyperplasia without lower urinary tract symptoms; F32.9 Major depressive disorder, single episode, unspecified; I10 Essential (primary) hypertension; E78.5 Hyperlipidemia, unspecified; E10.9 Type 1 diabetes mellitus without complications; M19.90 Unspecified osteoarthritis, unspecified site; I25.10 Atherosclerotic heart disease of native coronary artery without angina pectoris; Z79.899 Other long term (current) drug therapy; Z79.4 Long term (current) use of insulin; Z60.2 Problems related to living alone; Z90.49 Acquired absence of other specified parts of digestive tract; Z79.82 Long term (current) use of aspirin
CPT/HCPCS: 36415; 71020; 80053; 82962; 83735; 85025; 85027; 87040; 94667; 94799; 96365; 96368; 99284; J0456; J0696; J1650; J1815; J1956; J3490; J7060

== ENCOUNTER → 2016-09-08 | Outpatient (CLI) | payer MEDICARE, BC | LOC: RAD 07:09 | PROVIDERS: ATTEND Internal Medicine | DX: R06.02 Shortness of breath (principal); J18.9 Pneumonia, unspecified organism | CPT/HCPCS: 71020 ==

== ENCOUNTER → 2017-01-04 | Outpatient (CLI) | payer MEDICARE, BC ==
[2017-01-04 09:23] LABS: ABSOLUTE EOSINOPHILS # (AUTO) 0.4 10^3/uL (0.0-0.6); ABSOLUTE LYMPHOCYTES (AUTO) 2.1 10^3/uL (0.5-4.7); ABSOLUTE MONOCYTES (AUTO) 0.7 10^3/uL (0.1-1.4); ABSOLUTE NEUT (AUTO) 5.7 10^3/uL (1.7-8.2); BASOPHILS % (AUTO) 0.4 % (0-2); EOSINOPHILS % (AUTO) 4.5 % (0-6); HEMATOCRIT 36.4 % (37.9-51.0); HEMOGLOBIN 12.1 g/dL (13.5-17.0); HGB HCT DIFFERENCE -0.1; LYMPHOCYTES % (AUTO) 23.1 % (13-45); MEAN CORPUSCULAR HEMOGLOBIN 27.6 pg (27.0-33.4); MEAN CORPUSCULAR HGB CONC 33.2 g/dL (32.0-36.0); MEAN CORPUSCULAR VOLUME 83 fl (80-97); MONOCYTES % (AUTO) 8.1 % (3-13); RED BLOOD COUNT 4.38 10^6/uL (4.35-5.55); RED CELL DISTRIBUTION WIDTH 14.5 % (11.5-14.0); SEGMENTED NEUTROPHILS % (AUTO) 63.9 % (42-78)
[2017-01-04 09:41] LABS: ALANINE AMINOTRANSFERASE 32 U/L (21-72); ALBUMIN 4.3 g/dL (3.5-5.0); ALKALINE PHOSPHATASE 89 U/L (38-126); ANION GAP 10 (5-19); ASPARTATE AMINO TRANSFERASE 23 U/L (17-59); BILIRUBIN,DIRECT 0.3 mg/dL (0.0-0.4); BLOOD UREA NITROGEN 14 mg/dL (7-20); CALCIUM 9.2 mg/dL (8.4-10.2); CARBON DIOXIDE 28 mmol/L (22-30); CHLORIDE 102 mmol/L (98-107); CHOLESTEROL 144.98 mg/dL (0-200); CREATININE RESULT 0.95 mg/dL (0.52-1.25); Direct HDL 40 mg/dL (>40); GLUCOSE 142 mg/dL (75-110); POTASSIUM 4.4 mmol/L (3.6-5.0); SODIUM 140.4 mmol/L (137-145); TOTAL PROTEIN 7.5 g/dL (6.3-8.2); TRIGLYCERIDES 170 mg/dL (<150)
[2017-01-04 09:52] LABS: DIRECT LDL 59 mg/dL (<100)
== END ==
LOC: OD 08:29
PROVIDERS: ATTEND Internal Medicine
DX: E11.9 Type 2 diabetes mellitus without complications (principal); R35.1 Nocturia; I10 Essential (primary) hypertension; E78.5 Hyperlipidemia, unspecified; R53.83 Other fatigue
CPT/HCPCS: 36415; 80053; 80061; 82043; 83036; 84153; 84443; 85025

== ENCOUNTER 2017-07-28 18:39 | Emergency (ER) | payer MEDICARE, BC ==
[2017-07-28] MEDS ORDERED: NITROGLYCERIN 2% OINTMENT 1 GM PACKET TP ONE (19:08)
--- NOTE | 2017-07-28 19:08 | ER Document Report ---
ED Medical Screen (RME) - General Chief Complaint: Chest Pain Stated Complaint: CHEST PAIN Time Seen by Provider: 07/28/17 19:05 Mode of Arrival: Wheelchair Information source: Patient TRAVEL OUTSIDE OF THE [place] IN LAST 30 DAYS: No - HPI Patient complains to provider of: chest pain Onset: Other - pt states he has been having SSCP for the past 2 days. Did take ASA today. Has h/o HTN and DM - Related Data Allergies/Adverse Reactions: No Known Allergies Allergy (Verified 07/28/17 18:39) Past Medical History - Social History Chew tobacco use (# tins/day): No Frequency of alcohol use: None Drug Abuse: None - Past Medical History Cardiac Medical History: Reports: Hx Hypercholesterolemia, Hx Hypertension - medicated CONTROLLED Denies: Hx Congestive Heart Failure, Hx Coronary Artery Disease, Hx DVT, Hx Heart Attack, Hx Pulmonary Embolism Pulmonary Medical History: Denies: Hx Asthma, Hx Bronchitis, Hx COPD, Hx Pneumonia Neurological Medical History: Denies: Hx Cerebrovascular Accident, Hx Seizures Endocrine Medical History: Reports: Hx Diabetes Mellitus Type 1, Hx Diabetes Mellitus Type 2. Denies: Hx Hyperthyroidism, Hx Hypothyroidism Renal/ Medical History: Denies: Hx Peritoneal Dialysis GI Medical History: Denies: Hx Cirrhosis, Hx Hepatitis, Hx Hiatal Hernia, Hx Ulcer Musculoskeltal Medical History: Reports Hx Arthritis - mainly shoulders Skin Medical History: Denies Hx Eczema, Denies Hx Psoriasis Psychiatric Medical History: Reports: Hx Depression Infectious Medical History: Denies: Hx Hepatitis Past Surgical History: Reports: Hx Cholecystectomy. Denies: Hx Open Heart Surgery, Hx Pacemaker - Immunizations Hx Diphtheria, Pertussis, Tetanus Vaccination: No Physical Exam - Vital signs Vitals: Temp Pulse Resp BP Pulse Ox 97.5 F 52 L 20 177/64 H 97 07/28/17 18:59 07/28/17 18:59 07/28/17 18:59 07/28/17 18:59 07/28/17 18:59 Course - Vital Signs Vital signs: Temp Pulse Resp BP Pulse Ox 97.5 F 52 L 20 177/64 H 97 07/28/17 18:59 07/28/17 18:59 07/28/17 18:59 07/28/17 18:59 07/28/17 18:59
[2017-07-28 19:44] LABS: ABSOLUTE BASOPHILS # (AUTO) 0.1 10^3/uL (0.0-0.2); ABSOLUTE EOSINOPHILS # (AUTO) 0.3 10^3/uL (0.0-0.6); ABSOLUTE LYMPHOCYTES (AUTO) 2.4 10^3/uL (0.5-4.7); ABSOLUTE MONOCYTES (AUTO) 0.7 10^3/uL (0.1-1.4); ABSOLUTE NEUT (AUTO) 4.1 10^3/uL (1.7-8.2); BASOPHILS % (AUTO) 0.7 % (0-2); EOSINOPHILS % (AUTO) 4.3 % (0-6); HEMOGLOBIN 12.2 g/dL (13.5-17.0); LYMPHOCYTES % (AUTO) 32.2 % (13-45); MEAN CORPUSCULAR HEMOGLOBIN 27.9 pg (27.0-33.4); MEAN CORPUSCULAR HGB CONC 33.8 g/dL (32.0-36.0); MEAN CORPUSCULAR VOLUME 83 fl (80-97); PLATELET COUNT 233 10^3/uL (150-450); RED BLOOD COUNT 4.36 10^6/uL (4.35-5.55); RED CELL DISTRIBUTION WIDTH 14.4 % (11.5-14.0); SEGMENTED NEUTROPHILS % (AUTO) 53.8 % (42-78); TOTAL CELLS COUNTED % (AUTO) 100 %; WHITE BLOOD COUNT 7.6 10^3/uL (4.0-10.5)
[2017-07-28 20:01] LABS: ALANINE AMINOTRANSFERASE 30 U/L (21-72); ALBUMIN 4.1 g/dL (3.5-5.0); ALKALINE PHOSPHATASE 104 U/L (38-126); ANION GAP 11 (5-19); ASPARTATE AMINO TRANSFERASE 21 U/L (17-59); BILIRUBIN,DIRECT 0.4 mg/dL (0.0-0.4); BILIRUBIN,TOTAL 0.8 mg/dL (0.2-1.3); BLOOD UREA NITROGEN 15 mg/dL (7-20); CALCIUM 8.9 mg/dL (8.4-10.2); CARBON DIOXIDE 26 mmol/L (22-30); CHLORIDE 102 mmol/L (98-107); CREATINE KINASE 179 U/L (55-170); GLUCOSE 271 mg/dL (75-110); POTASSIUM 3.8 mmol/L (3.6-5.0); SODIUM 138.8 mmol/L (137-145)
--- NOTE | 2017-07-28 20:11 | RADIOLOGY REPORT (SQ) ---
EXAM DESCRIPTION: CHEST PA/LAT COMPLETED DATE/TIME: 07/28/2017 7:55 pm REASON FOR STUDY: cp COMPARISON: 09/08/2016 EXAM PARAMETERS: NUMBER OF VIEWS: two views TECHNIQUE: Digital Frontal and Lateral radiographic views of the chest acquired. RADIATION DOSE: NA LIMITATIONS: none FINDINGS: LUNGS AND PLEURA: No opacities, masses or pneumothorax. No pleural effusion. MEDIASTINUM AND HILAR STRUCTURES: No masses or contour abnormalities. HEART AND VASCULAR STRUCTURES: Heart normal size. No evidence for failure. BONES: No acute findings. HARDWARE: None in the chest. OTHER: No other significant finding. IMPRESSION: NO SIGNIFICANT RADIOGRAPHIC FINDING IN THE CHEST. TECHNICAL DOCUMENTATION: JOB ID: [id number] [employer]- All Rights Reserved
[2017-07-28 20:13] LABS: CREATINE KINASE MB 3.82 ng/mL (<4.55)
[2017-07-28 20:17] LABS: TROPONIN I 0.131 ng/mL
[2017-07-28] MEDS ORDERED: ENOXAPARIN SODIUM INJ 80 MG/0.8 ML DISP.SYRIN SUBCUT ONE (20:32)
[2017-07-28] MEDS ORDERED: ASPIRIN 325 MG TABLET PO ONE (20:32)
--- NOTE | 2017-07-28 20:39 | ER Document Report ---
ED General - General Mode of Arrival: Wheelchair Information source: Patient TRAVEL OUTSIDE OF THE [place] IN LAST 30 DAYS: No <ANÍBAL CANDELARIO - Last Filed: 07/28/17 20:33> <LATOYA GARCIA - Last Filed: 07/28/17 22:40> - General Chief Complaint: Chest Pain Stated Complaint: CHEST PAIN Time Seen by Provider: 07/28/17 19:05 Notes: Patient is a 77 year old male with a history of hypertension and diabetes presents to the emergency department complaining of chest pain onset 2 days ago. Patient states that the pain radiates into both of his arms. Patient also complains of shortness of breath on exertion and general fatigue. Patient denies a history of MN, strokes, cancer, blood clots or any long trips. (ANÍBAL CANDELARIO) - Related Data Allergies/Adverse Reactions: No Known Allergies Allergy (Verified 07/28/17 18:39) Past Medical History - General Information source: Patient - Social History Smoking Status: Never Smoker Chew tobacco use (# tins/day): No Frequency of alcohol use: None Drug Abuse: None Family History: None Patient has suicidal ideation: No Patient has homicidal ideation: No - Past Medical History Cardiac Medical History: Reports: Hx Hypercholesterolemia, Hx Hypertension - medicated CONTROLLED Endocrine Medical History: Reports: Hx Diabetes Mellitus Type 1, Hx Diabetes Mellitus Type 2 Musculoskeltal Medical History: Reports Hx Arthritis - mainly shoulders Psychiatric Medical History: Reports: Hx Depression Past Surgical History: Reports: Hx Cholecystectomy - Immunizations Hx Diphtheria, Pertussis, Tetanus Vaccination: No <ANÍBAL CANDELARIO - Last Filed: 07/28/17 20:33> Review of Systems - Review of Systems Constitutional: No symptoms reported EENT: No symptoms reported Cardiovascular: See HPI, Chest pain Respiratory: See HPI, Short of breath Gastrointestinal: No symptoms reported Genitourinary: No symptoms reported Male Genitourinary: No symptoms reported Musculoskeletal: No symptoms reported Skin: No symptoms reported Hematologic/Lymphatic: No symptoms reported Neurological/Psychological: No symptoms reported -: Yes All other systems reviewed and negative <ANÍBAL CANDELARIO - Last Filed: 07/28/17 20:33> Physical Exam <ANÍBAL CANDELARIO - Last Filed: 07/28/17 20:33> <LATOYA GARCIA - Last Filed: 07/28/17 22:40> - Vital signs Vitals: Temp Pulse Resp BP Pulse Ox 97.5 F 52 L 20 177/64 H 97 07/28/17 18:59 07/28/17 18:59 02 18:59 02 18:59 07/28/17 18:59 - Notes Notes: GENERAL: Alert, interacts well. No acute distress. HEAD: Normocephalic, atraumatic. EYES: Pupils equal, round, and reactive to light. Extraocular movements intact. ENT: Oral mucosa moist, tongue midline. NECK: Full range of motion. Supple. Trachea midline. LUNGS: Clear to auscultation bilaterally, no wheezes, rales, or rhonchi. No respiratory distress. HEART: Regular rate and rhythm. No murmurs, gallops, or rubs. ABDOMEN: Soft, non-tender. Non-distended. Bowel sounds present in all 4 quadrants. EXTREMITIES: Moves all 4 extremities spontaneously. No edema, radial and dorsalis pedis pulses 2/4 bilaterally. No cyanosis. NEUROLOGICAL: Alert and oriented x3. Normal speech. PSYCH: Normal affect, normal mood. SKIN: Warm, dry, normal turgor. No rashes or lesions noted. (ANÍBAL CANDELARIO) Course - Laboratory Result Diagrams: 07/28/17 19:28 07/28/17 19:28 <ANÍBAL CANDELARIO - Last Filed: 07/28/17 20:33> - Laboratory Result Diagrams: 07/28/17 19:28 07/28/17 19:28 <LATOYA GARCIA - Last Filed: 07/28/17 22:40> - Re-evaluation Re-evalutation: 07/28/17 22:38 CBC shows mild anemia with hemoglobin 12.2, CMP grossly unremarkable, he is hyperglycemic however he is a known diabetic, glucose is 271, cardiac enzymes are elevated with a troponin of 0.131, chest x-ray shows no acute process. 07/28/17 22:39 Pain-free at rest, received aspirin and Lovenox, Nitropaste on chest. Discussed with Dr. Heard at [facility], accepts the patient to his service as a transfer for non-STEMI. Given his continuing pain with exertion patient may be a candidate for cardiac catheterization. (LATOYA GARCIA) - Vital Signs Vital signs: Temp Pulse Resp BP Pulse Ox 97.5 F 52 L 16 147/65 H 98 07/28/17 18:59 07/28/17 18:59 07/28/17 21:01 07/28/17 21:01 07/28/17 21:01 - Laboratory Laboratory results interpreted by me: 07/28/17 07/28/17 19:28 19:28 Hgb 12.2 L Hct 36.0 L RDW 14.4 H Glucose 271 H Creatine Kinase 179 H - EKG Interpretation by Me Additional EKG results interpreted by me: 07/28/17 22:38 EKG shows sinus bradycardia at a rate of 49, left anterior hemiblock, no ST segment elevations or depressions, there are T-wave inversions in 1, aVL, V4 through V6 per my interpretation. (LATOYA GARCIA) Critical Care Note - Critical Care Note Total time excluding time spent on procedures (mins): 35 <LATOYA GARCIA - Last Filed: 07/28/17 22:40> Discharge <ANÍBAL CANDELARIO - Last Filed: 07/28/17 20:33> <LATOYA GARCIA - Last Filed: 07/28/17 22:40> - Discharge Clinical Impression: Non-STEMI (non-ST elevated myocardial infarction), Diabetes mellitus type 2 in nonobese HTN (hypertension) Qualifiers: Hypertension type: essential hypertension Qualified Code(s): I10 - Essential ( primary) hypertension Condition: Fair Disposition: [facility] Referrals: LUIZA PAULA MD [Primary Care Provider] - Follow up as needed Scribe Attestation: 07/28/17 22:39 I personally performed the services described in the documentation, reviewed and edited the documentation which was dictated to the scribe in my presence, and it accurately records my words and actions. (LATOYA GARCIA) Scribe Documentation - Scribe Written by Nona:: Nona Odom, 07/28/2017 20:39 acting as scribe for :: Kade <ANÍBAL CANDELARIO - Last Filed: 07/28/17 20:33>
[2017-07-28 22:47] VITALS: BP 154/52
--- NOTE | 2017-07-29 09:07 | EKG REPORT ---
SEVERITY:- ABNORMAL ECG - SINUS BRADYCARDIA PROBABLE LEFT ATRIAL ABNORMALITY LVH WITH IVCD, LAD AND SECONDARY REPOL ABNRM : Confirmed by: Corry Lang 29-Jul-2017 09:07:17
== END 2017-07-28 22:58 | disposition short-term general hospital (02) ==
LOC: ER 18:39
DX: I21.4 Non-ST elevation (NSTEMI) myocardial infarction (principal); E11.9 Type 2 diabetes mellitus without complications; I10 Essential (primary) hypertension; R07.9 Chest pain, unspecified; M79.601 Pain in right arm; M79.602 Pain in left arm; R06.02 Shortness of breath; R53.83 Other fatigue; I25.2 Old myocardial infarction
CPT/HCPCS: 93005; 99291; 96372; 36415; 82553; 82550; 85025; 80053; 84484; 71046; 93010; A9270 ×2; J1650

== ENCOUNTER 2019-11-01 17:14 | Emergency (ER) | payer OTHER, MEDICARE, BC ==
[2019-11-01] MEDS ORDERED: DIPH/PERTUSS(ACELL)/TETANUS VAC/PF 0.5 ML SYR (>=10YO) IM ONE (17:37)
--- NOTE | 2019-11-01 17:38 | ER Document Report ---
ED Medical Screen (RME) - General Chief Complaint: Skin Problem Stated Complaint: SKIN INJURY/LEFT ARM Time Seen by Provider: 11/01/19 17:36 Primary Care Provider: LEWIS URIARTE MD [Primary Care Provider] - Follow up as needed Mode of Arrival: Ambulatory Information source: Patient Notes: 79-year-old male presented to ED for injury to his left forearm. He states the box fell on his arm yesterday. States he definitely needs a tetanus. He does have a history of open heart surgery coronary artery disease blood pressure cholesterol colon resection for multiple polyps in the area. He is alert oriented respirations regular nonlabored speaking in full sentences. He will need his left arm wounds cleaned and dressed after x-rays are completed. He does need a tetanus. I have greeted and performed a rapid initial assessment of this patient. A comprehensive ED assessment and evaluation of the patient, analysis of test results and completion of medical decision making process will be conducted by an additional ED providers. TRAVEL OUTSIDE OF THE [place] IN LAST 30 DAYS: No - Related Data Allergies/Adverse Reactions: No Known Allergies Allergy (Verified 11/01/19 17:32) Past Medical History - Social History Chew tobacco use (# tins/day): No Frequency of alcohol use: None Drug Abuse: None - Past Medical History Cardiac Medical History: Reports: Hx Hypercholesterolemia, Hx Hypertension - medicated CONTROLLED Denies: Hx Congestive Heart Failure, Hx Coronary Artery Disease, Hx DVT, Hx Heart Attack, Hx Pulmonary Embolism Pulmonary Medical History: Denies: Hx Asthma, Hx Bronchitis, Hx COPD, Hx Pneumonia Neurological Medical History: Denies: Hx Cerebrovascular Accident, Hx Seizures Endocrine Medical History: Reports: Hx Diabetes Mellitus Type 1, Hx Diabetes Mellitus Type 2. Denies: Hx Hyperthyroidism, Hx Hypothyroidism Renal/ Medical History: Denies: Hx Peritoneal Dialysis GI Medical History: Denies: Hx Cirrhosis, Hx Hepatitis, Hx Hiatal Hernia, Hx Ulcer Musculoskeltal Medical History: Reports Hx Arthritis - mainly shoulders Skin Medical History: Denies Hx Eczema, Denies Hx Psoriasis Psychiatric Medical History: Reports: Hx Depression Infectious Medical History: Denies: Hx Hepatitis Past Surgical History: Reports: Hx Cholecystectomy. Denies: Hx Open Heart Surgery, Hx Pacemaker - Immunizations Hx Diphtheria, Pertussis, Tetanus Vaccination: No Physical Exam - Vital signs Vitals: Temp 97.8 F 11/01/19 17:32 Course - Vital Signs Vital signs: Temp Pulse Resp BP Pulse Ox 97.8 F 11/01/19 17:32 Doctor's Discharge - Discharge Referrals: LEWIS URIARTE MD [Primary Care Provider] - Follow up as needed
--- NOTE | 2019-11-01 18:05 | RADIOLOGY REPORT (SQ) ---
EXAM DESCRIPTION: FOREARM LEFT COMPLETED DATE/TIME: 11/01/2019 4:45 pm REASON FOR STUDY: box fell on arm. Posterior pain. COMPARISON: None. NUMBER OF VIEWS: Two views. TECHNIQUE: Two radiographic images acquired of the left forearm, including elbow and wrist in at [address] one projection. LIMITATIONS: None. FINDINGS: MINERALIZATION: Normal. BONES: No acute fracture. No worrisome bone lesions. SOFT TISSUES: No obvious swelling or foreign body. OTHER: No other abnormality. IMPRESSION: No radiographic abnormality of the left forearm. TECHNICAL DOCUMENTATION: JOB ID: [id number] [employer]- All Rights Reserved Reading location - IP/workstation name: [email or web address]
--- NOTE | 2019-11-01 21:18 | ER Document Report ---
ED Wound - General Chief Complaint: Skin Problem Stated Complaint: SKIN INJURY/LEFT ARM Time Seen by Provider: 11/01/19 17:36 Primary Care Provider: LEWIS URIARTE MD [Primary Care Provider] - Follow up as needed Mode of Arrival: Ambulatory Information source: Patient Notes: 79-year-old male past medical history significant for hypertension, diabetes, hyperlipidemia, depression, [place] presents to the emergency room with a abrasion and skin tears to his left forearm. Patient states he was at work when a box fell landing on his left arm causing a large abrasion and skin tear. Unknown last tetanus shot. Patient is right-handed. Bleeding is persistent. Patient states he cleansed the wound and applied gauze and tape to help reduce the bleeding. TRAVEL OUTSIDE OF THE [place] IN LAST 30 DAYS: No - Related Data Allergies/Adverse Reactions: No Known Allergies Allergy (Verified 11/01/19 17:32) Past Medical History - General Information source: Patient - Social History Smoking Status: Former Smoker Chew tobacco use (# tins/day): No Frequency of alcohol use: None Drug Abuse: None Family History: None Patient has homicidal ideation: No - Past Medical History Cardiac Medical History: Reports: Hx Hypercholesterolemia, Hx Hypertension - medicated CONTROLLED Denies: Hx Congestive Heart Failure, Hx Coronary Artery Disease, Hx DVT, Hx Heart Attack, Hx Pulmonary Embolism Pulmonary Medical History: Denies: Hx Asthma, Hx Bronchitis, Hx COPD, Hx Pneumonia Neurological Medical History: Denies: Hx Cerebrovascular Accident, Hx Seizures Endocrine Medical History: Reports: Hx Diabetes Mellitus Type 1, Hx Diabetes Mellitus Type 2. Denies: Hx Hyperthyroidism, Hx Hypothyroidism Renal/ Medical History: Denies: Hx Peritoneal Dialysis GI Medical History: Denies: Hx Cirrhosis, Hx Hepatitis, Hx Hiatal Hernia, Hx Ulcer Musculoskeletal Medical History: Reports Hx Arthritis - mainly shoulders Skin Medical History: Denies Hx Eczema, Denies Hx Psoriasis Psychiatric Medical History: Reports: Hx Depression Infectious Medical History: Denies: Hx Hepatitis Past Surgical History: Reports: Hx Cholecystectomy. Denies: Hx Open Heart Surgery, Hx Pacemaker - Immunizations Hx Diphtheria, Pertussis, Tetanus Vaccination: No Review of Systems - Review of Systems Constitutional: No symptoms reported Cardiovascular: No symptoms reported Respiratory: No symptoms reported Musculoskeletal: No symptoms reported Skin: Other - Abrasions and skin tears Neurological/Psychological: No symptoms reported -: Yes All other systems reviewed and negative Physical Exam - Vital signs Vitals: Temp Pulse Resp BP Pulse Ox 97.8 F 57 L 20 149/59 H 97 11/01/19 17:18 11/01/19 17:18 11/01/19 17:18 11/01/19 17:18 11/01/19 17:18 - General General appearance: Appears well, Alert In distress: Mild - Respiratory Respiratory status: No respiratory distress Chest status: Nontender Breath sounds: Normal Chest palpation: Normal - Cardiovascular Rhythm: Bradycardia Heart sounds: Normal auscultation Murmur: No Friction rub: No Gallop: None auscultated - Extremities Forearm: Tender - Left forearm tender to palpation, Abrasion - There are multiple abrasions and skin tears to the left dorsal forearm. Bleeding is persistent., Other - Full range of motion with flexion and extension and internal and external rotation of the left forearm. There is no obvious deformity noted. - Neurological Neuro grossly intact: Yes Orientation: AAOx4 Notes: Positive left radial pulse. Capillary refill less than 3 seconds. - Skin Skin Temperature: Warm Skin Moisture: Dry Skin irregularity: other - Abrasions and skin tears Location of irregularity: Extremities - Left forearm Course - Re-evaluation Re-evalutation: 11/01/19 21:21 Tetanus was updated, wound was cleansed and dressing applied by nursing staff as documented. Patient was counseled on proper wound care. Recheck with his employer through [employer] on Sunday. Tylenol as needed for pain. Patient was given strict return to the emergency room guidelines. He is to return for any new or worsening symptoms. All questions were answered. Patient verbalized understanding and agrees with plan of care. - Vital Signs Vital signs: Temp Pulse Resp BP Pulse Ox 97.5 F 52 L 18 148/68 H 100 11/01/19 22:10 11/01/19 22:10 11/01/19 22:10 11/01/19 22:10 11/01/19 22:10 - Diagnostic Test Radiology reviewed: Reports reviewed Discharge - Discharge Clinical Impression: Contusion of left forearm, initial encounter, Abrasion of left forearm, initial encounter Skin tear of left forearm without complication Qualifiers: Encounter type: initial encounter Qualified Code(s): S51.812A - Laceration without foreign body of left forearm, initial encounter Condition: Stable Disposition: HOME, SELF-CARE Instructions: Abrasions ([facility]), Contusion ([facility]), Skin Tear ([facility]) Additional Instructions: Rest and elevate your left forearm. Can change dressing to left forearm twice a day apply topical antibiotic ointment and a nonstick bandage. Follow-up with [employer] through your employer on Sunday. Return for any new or worsening symptoms. Forms: Return to Work Referrals: LEWIS URIARTE MD [Primary Care Provider] - Follow up as needed
[2019-11-01 22:13] VITALS: BP 148/68
== END 2019-11-01 22:10 | disposition home or self-care (01) ==
LOC: ER 17:14
DX: S51.812A Laceration without foreign body of left forearm, initial encounter (principal); W19.XXXA Unspecified fall, initial encounter; Z87.891 Personal history of nicotine dependence; I10 Essential (primary) hypertension; Z79.899 Other long term (current) drug therapy; E11.9 Type 2 diabetes mellitus without complications
CPT/HCPCS: 90471; 90715; 99283

== ENCOUNTER → 2020-04-23 | Outpatient (CLI) | payer MEDICARE, BC ==
--- NOTE | 2020-04-23 12:54 | RADIOLOGY REPORT (SQ) ---
EXAM DESCRIPTION: CTA CHEST IMAGES COMPLETED DATE/TIME: 04/23/2020 11:49 am REASON FOR STUDY: SHORTNESS OF BREATH R06.02 SHORTNESS OF BREATH COMPARISON: None. TECHNIQUE: CT scan of the chest performed using helical scanning technique with dynamic intravenous contrast injection. Images reviewed with lung, soft tissue and bone windows. Reconstructed coronal and sagittal MPR images reviewed. Additional 3 dimensional post-processing performed to develop Maximal Intensity Projection images (AR P). All images stored on PACS. All CT scanners at this facility use dose modulation, iterative reconstruction, and/or weight based d osing when appropriate to reduce radiation dose to as low as reasonably achievable (ALARA). [facility]: Dose Right [facility]: CareDose [facility]: Dose Right [facility]: Teradose 4D [facility]: Smart PaxVax CONTRAST TYPE AND DOSE: contrast/concentration: Isovue 350.00 mmol/ml; Total Contrast Delivered: 62. 0 ml; Total Saline Delivered: 80.0 ml Contrast bolus adequate for pulmonary arteries and aorta. RENAL FUNCTION: Creatinine 1.2 RADIATION DOSE: CT Rad equipment meets quality standard of care and radiation dose reduction techniq ues were employed. CTDIvol: 14.4 - 19.8 mGy. DLP: 559 mGy-cm. . LIMITATIONS: None. FINDINGS: LUNGS AND PLEURA: There are some small calcified granulomas. There is mild bronchiectasis in the lingula and left lower lobe and perhaps to a lesser degree in the right lower lobe posteriorl y. AORTA AND GREAT VESSELS: No aneurysm. No dissection. HEART: No pericardial effusion. Prior CABG. PULMONARY ARTERIES: No emboli visualized in the main pulmonary arteries or the segmental branches. HILAR AND MEDIASTINAL STRUCTURES: There are some small nonspecific mediastinal nodes. No masses. HARDWARE: Sternotomy wires. UPPER ABDOMEN: No significant findings. Limited exam. THYROID AND OTHER SOFT TISSUES: No masses. No adenopathy. BONES: No acute or significant finding. 3D MIPS: Confirm above findings. OTHER: No other significant finding. IMPRESSION: 1. There is no pulmonary embolus. There is no aortic aneurysm or dissection. 2. There is mild bronchiectasis, left more than right. COMMENT: Quality ID # [id number]: Final reports with documentation of one or more dose reduction techniques (e.g., Automated exposure control, adjustment of the mA and/or kV according to patient size, use of iterative reconstruction technique) TECHNICAL DOCUMENTATION: JOB ID: [id number] 2011 [employer]- All Rights Reserved Reading location - IP/workstation name: [email or web address]
== END ==
LOC: RAD 11:15
PROVIDERS: ATTEND Internal Medicine
DX: J47.9 Bronchiectasis, uncomplicated (principal); R06.02 Shortness of breath
CPT/HCPCS: 71275; 82565